=== PATIENT | male | born 1990 | race Asian ===

== ENCOUNTER 2018-03-13 19:53 | Emergency (ER) | payer OTHER ==
[2018-03-13] MEDS ORDERED: NS 1,000 ML IV ONE (20:08)
[2018-03-13 20:26] LABS: PLATELET COUNT 268 10^3/uL (150-400)
--- NOTE | 2018-03-13 20:27 | EDPHY ---
H & P Stated Complaint: abd pain and black stool x 5 days, dizzy today Time Seen by Provider: 03/13/18 20:08 HPI/ROS: CHIEF COMPLAINT: Abdominal pain, dark stool HISTORY OF PRESENT ILLNESS: The patient presents the ED with 5 days of epigastric pain and dark stool. He is concerned about the possibility of a bleeding ulcer. Reports he has been taking quite a bit of ibuprofen over the past week for dental pain. He is also been on amoxicillin. The patient denies prior history of peptic ulcer disease. The patient denies any fever, cough or congestion. Patient denies any lightheadedness or presyncope. Patient reports his epigastric pain is mild in nature. REVIEW OF SYSTEMS: A comprehensive 10 point review of systems is otherwise negative aside from elements mentioned in the history of present illness. Source: Patient Exam Limitations: No limitations - Personal History Current Tetanus Diphtheria and Acellular Pertussis (TDAP): Yes Tetanus Vaccine Date: 10/2017 - Medical/Surgical History Hx Asthma: No Hx Chronic Respiratory Disease: No Hx Diabetes: No Hx Cardiac Disease: No Hx Renal Disease: No Hx Cirrhosis: No Hx Alcoholism: No Hx HIV/AIDS: No Hx Splenectomy or Spleen Trauma: No Other PMH: hx: appendectomy - Social History Smoking Status: Never smoked - Physical Exam Exam: General Appearance: Alert, no distress Eyes: Pupils equal and round no pallor or injection ENT, Mouth: Mucous membranes moist Respiratory: There are no retractions, lungs are clear to auscultation Cardiovascular: Regular rate and rhythm Gastrointestinal: Epigastric pain, no peritoneal signs Rectal: Brownish/green stool Neurological: 5/5 strength noted all 4 extremities Skin: Warm and dry, no rashes Musculoskeletal: Neck is supple nontender Extremities: symmetrical, full range of motion Constitutional: Initial Vital Signs Temperature (C) 36.4 C 03/13/18 19:56 Heart Rate 62 03/13/18 19:56 Respiratory Rate 18 03/13/18 19:56 Blood Pressure 131/78 H 03/13/18 19:56 O2 Sat (%) 97 03/13/18 19:56 O2 Delivery Mode Room Air Allergies/Adverse Reactions: No Known Allergies Allergy (Unverified 03/13/18 19:56) Home Medications: Medication Instructions Recorded NK [No Known Home Meds] 03/13/18 Medical Decision Making ED Course/Re-evaluation: Patient presents to the ED with dark stool in the setting of recent antibiotic use and NSAID usage. The patient was noted to be heme-negative from below. The patient's hematocrit is normal. Is certainly possible the change in the color of his stool is secondary to antibiotics. He certainly could be having some dyspepsia from his use of NSAIDs. This point time I have encouraged the patient to begin ranitidine 150 mg twice a day. The patient's stop taking NSAIDs and use Tylenol instead for pain. Patient has been advised to return to the ED for markedly worsening symptoms or other concerns. Differential Diagnosis: Differential diagnosis considered includes gastritis, peptic ulcer disease, critical anemia, upper GI bleed, lower GI bleed - Data Points Laboratory Results: Laboratory Results 03/13/18 20:15 03/13/18 20:15 03/13/18 03/13/18 03/13/18 20:29 20:15 20:15 WBC 7.36 10^3/uL 10^3/uL (3.80-9.50) RBC 5.36 10^6/uL 10^6/uL (4.40-6.38) Hgb 16.3 g/dL g/dL (13.7-17.5) Hct 46.8 % % (40.0-51.0) MCV 87.3 fL fL (81.5-99.8) MCH 30.4 pg pg (27.9-34.1) MCHC 34.8 g/dL g/dL (32.4-36.7) RDW 12.2 % % (11.5-15.2) Plt Count 268 10^3/uL 10^3/uL (150-400) MPV 9.6 fL fL (8.7-11.7) Neut % (Auto) 56.4 % % (39.3-74.2) Lymph % (Auto) 30.6 % % (15.0-45.0) Dillon % (Auto) 6.5 % % (4.5-13.0) Eos % (Auto) 5.4 % % (0.6-7.6) Baso % (Auto) 0.8 % % (0.3-1.7) Nucleat RBC Rel Count 0.0 % % (0.0-0.2) Absolute Neuts (auto) 4.15 10^3/uL 10^3/uL (1.70-6.50) Absolute Lymphs (auto) 2.25 10^3/uL 10^3/uL (1.00-3.00) Absolute Monos (auto) 0.48 10^3/uL 10^3/uL (0.30-0.80) Absolute Eos (auto) 0.40 10^3/uL 10^3/uL (0.03-0.40) Absolute Basos (auto) 0.06 10^3/uL 10^3/uL (0.02-0.10) Absolute Nucleated RBC 0.00 10^3/uL 10^3/uL (0-0.01) Immature Gran % 0.3 % % (0.0-1.1) Immature Gran # 0.02 10^3/uL 10^3/uL (0.00-0.10) Sodium 139 mEq/L mEq/L (135-145) Potassium 4.3 mEq/L mEq/L (3.5-5.2) Chloride 104 mEq/L mEq/L (97-110) Carbon Dioxide 27 mEq/l mEq/l (22-31) Anion Gap 8 mEq/L mEq/L (6-14) BUN 10 mg/dL mg/dL (7-23) Creatinine 1.0 mg/dL mg/dL (0.7-1.3) Estimated GFR > 60 Glucose 77 mg/dL mg/dL (70-100) Calcium 9.8 mg/dL mg/dL (8.5-10.4) Stool Occult Bld Scrn NEGATIVE (NEGATIVE) Medications Given: Discontinued Medications Sodium Chloride (Ns) 1,000 mls @ 0 mls/hr IV EDNOW ONE; Wide Open PRN Reason: Protocol Stop: 03/13/18 20:09 Last Admin: 03/13/18 20:26 Dose: 1,000 mls Departure - Departure Disposition: Home, Routine, Self-Care Clinical Impression: Gastritis Condition: Good Instructions: Gastritis (ED) Additional Instructions: 1. Your laboratory testing demonstrates no evidence of internal bleeding. 2. Your change in stool color may be secondary to antibiotics. 3. I recommend stopping Advil and Aleve and instead begin Tylenol. 4. Begin taking Zantac 150 mg twice a day for your upset stomach. You can also use Maalox as needed. 5. Return to the ED for markedly worsening symptoms or other concerns.
[2018-03-13 20:50] VITALS: BP 133/87
== END 2018-03-13 20:48 | disposition home or self-care (01) ==
DX: K29.70 Gastritis, unspecified, without bleeding (principal); E86.9 Volume depletion, unspecified